=== PATIENT | male | born 1935 | race Caucasian/White ===

== ENCOUNTER 2017-04-17 19:35 | Inpatient (IN) ==
--- NOTE | 2017-04-17 19:45 | Emergency Department Report ---
Chest Pain HPI - General Stated Complaint: Fever/Chest Pain Time Seen by Provider: 04/17/17 19:39 Source: patient Mode of arrival: ambulatory Limitations: no limitations - History of Present Illness HPI narrative: He presents to [facility] with c/o chest pain and fever. He started with a fever yesterday, had not taken his temp at home however. Just felt very hot. Has been feeling weak for the last 4 days. Had noticed an increased cough 4 days ago as well, cough is non productive. He does have a history of COPD but does not wear O2 normally. Noted sats on RA upon arrival are 80% and he is tachypneic. Is speaking in complete sentences at this time but is mildly diaphoretic. MD complaint: chest pain Occurred At: home Onset (ago): hour(s) Duration: constant Onset: during exertion Pain location: substernal Severity: moderate Quality: tightness Pain radiation: none Relieving factors: nothing Exacerbating factors: exertion Associated symptoms: dyspnea, fever, cough Aspirin Today: unknown Nitro Today: no nitro taken today Treatments prior to arrival chest pain: none - Related Data Home Medications Medication Instructions Recorded Confirmed Albuterol Sulfate [Proair Hfa] 1 puff INH Q4H PRN 04/17/17 04/17/17 Aspirin 325 mg PO DAILY 04/17/17 04/17/17 Ipratropium/Albuterol [Combivent 1 puff INH BID 04/17/17 04/17/17 Respimat Inhaler] Metoprolol Tartrate [Lopressor] 25 mg PO BID 04/17/17 04/17/17 Rosuvastatin [Crestor] 20 mg PO HS 04/17/17 04/17/17 Allergies Allergy/AdvReac Type Severity Reaction Status Date / Time No Known Allergies Allergy Verified 04/17/17 20:23 Review of Systems Constitutional: Reports: fever, chills, weakness ENT: Denies: ear pain, throat pain, congestion Cardiovascular: Reports: chest pain, dyspnea on exertion. Denies: palpitations , edema Respiratory: Reports: cough, dyspnea. Denies: wheezes, hemoptysis Gastrointestinal: Denies: abdominal pain, nausea, vomiting, diarrhea Integumentary: Denies: rash Neurological: Reports: weakness. Denies: headache, numbness, paresthesias [facility] Patient Stated Medical History Coronary Artery Disease Yes Chronic Obstructive Pulmonary Yes Disease (COPD) High Cholesterol Coronary artery disease with 3 stents Surgical History: Coronary artery stenting - Social History Smoking status: Never smoker Substance use type: does not use Alcohol intake frequency: does not drink Physical Exam - Limitations Limitations: no limitations - General General appearance: alert, in no apparent distress - Normal Exams: Neck:: Full range of motion, without adenopathy, JVD, bruits or thyromegaly Cardiovascular:: Regular rate and rhythm, without murmur or gallop, Pulses 2+ all extremities, capillary refill, <2 seconds all extremities Abdomen:: Bowel sounds positive, soft, non-tender, non-distended, no hepatosplenomegaly, masses or bruits noted Neurological:: Patient is alert, and oriented Psychiatric:: Patient exhibits, appropriate attention, emotion and affect - Respiratory Respiratory exam: Present: normal lung sounds bilaterally, other (tachypneic) Course Vital Signs Temperature 99.9 F 04/17/17 19:38 Respiratory Rate 25 H 04/17/17 19:38 Blood Pressure 154/65 H 04/17/17 19:38 Pulse Oximetry 83 L 04/17/17 19:38 Temperature 99.9 F 04/17/17 19:38 Respiratory Rate 20 04/17/17 20:10 Blood Pressure 154/65 H 04/17/17 19:38 Pulse Oximetry 91 04/17/17 20:10 Chest Pain - MDM Narrative Medical decision making narrative: Chesty xray does show a RLL pneumonia. Lactate is normal at 1.4. IV Rocephin and Zithromax ordered. He is at 92% on the 2L O2 per NC currently. Did speak with Dr Edwards and he will accept for admission at this time. - Differential Diagnosis Likely: stable angina, unstable angina pectoris, atypical chest pain, st elevation myocardial infarction - Lab Data Attestation: I reviewed the patient's lab results. Result diagrams: 04/17/17 19:47 04/17/17 19:47 Lab Results 04/17/17 04/17/17 04/17/17 Range/Units 19:47 19:47 20:21 WBC 23.5 H (4.5-11.0) T/MM3 RBC 3.99 L (4.50-5.90) M/MM3 Hgb 13.1 L (13.5-17.5) GM/DL Hct 39.5 L (41-53) % MCV 99.0 (80-100) UM3 MCH 32.8 (26-34) UUG MCHC 33.2 (31-37) GM/DL RDW Std Deviation 44.8 (36.9-50.2) FL Plt Count 242 (130-400) T/MM3 MPV 11.6 (9.4-12.4) UM3 Immature Gran % (Auto) Not performed Neut % (Auto) Not performed Lymph % (Auto) Not performed Coleman % (Auto) Not performed Eos % (Auto) Not performed Baso % (Auto) Not performed Neut # Not performed Lymph # Not performed Coleman # Not performed Eos # Not performed Baso # Not performed Abs Immat Gran (auto) Not performed Neutrophils % (Manual) 88.0 H (33-66) % Band Neutrophils % 9.0 H (0-6) % Monocytes % (Manual) 3.0 (0-9.0) % Neutrophils # (Manual) 20.7 H (1.8-7.7) T/MM3 Band Neutrophils # 2.1 T/MM3 Monocytes # (Manual) 0.7 (0-0.8) T/MM3 RBC Morph Comment Normal Turbidity < 20 (0-20) Sodium 140 (134-144) MEQ/L Potassium 4.2 (3.6-5) MEQ/L Chloride 103 (98-107) MEQ/L Carbon Dioxide 23 (22-30) MEQ/L Anion Gap 14 (5-15) MEQ/L BUN 20.0 (9-20) MG/DL Creatinine 1.3 (0.8-1.5) MG/DL GFR Calculation 53 BUN/Creatinine Ratio 15 (6-26) RATIO Glucose 159 H (75-110) MG/DL Calculated Osmolality 275 (261-280) MOSM/KG Calcium 8.8 (8.4-10.2) MG/DL Total Bilirubin 1.30 (0.20-1.30) MG/DL Icterus Index < 2 (0-7) AST 24 (17-59) U/L ALT 31 (21-72) U/L Alkaline Phosphatase 76 (38-126) U/L Troponin I 0.017 (0-0.12) ng/ml Total Protein 7.3 (6.3-8.2) G/DL Albumin 4.3 (3.5-5.0) G/DL Globulin 3.0 (2.4-3.6) G/DL Albumin/Globulin Ratio 1.4 (1.1-2.2) RATIO Plasma Lactate 1.4 (0.6-2.2) MMOL/L Specimen Hemolysis 29 H (0-25) - Radiology Data Attestation: I reviewed the patient's radiology results. Chest xray: Right lower lobe pneumonia Disposition Clinical Impression: Pneumonia Qualifiers: Pneumonia type: due to other aerobic Gram-negative bacteria Laterality: right Lung location: lower lobe of lung Qualified Code(s): J15.6 - Pneumonia due to other aerobic Gram-negative bacteria Condition: Stable Prescriptions: No Action Ipratropium/Albuterol [Combivent Respimat Inhaler] 1 puff INH BID Aspirin 325 mg PO DAILY Metoprolol Tartrate [Lopressor] 25 mg PO BID Rosuvastatin [Crestor] 20 mg PO HS Albuterol Sulfate [Proair Hfa] 1 puff INH Q4H PRN PRN Reason: Shortness Of Air/Wheezing Time of Disposition: 21:10 - Seen By: midlevel
[2017-04-17] MEDS ORDERED: ALBUTEROL/IPRATROPIUM 2.5mg-0.5mg/3ml NEB AEROSOL ONE (20:09)
[2017-04-17] MEDS ORDERED: CEFTRIAXONE (ER USE ONLY) 1 GM in NS 100 ML IV ONE (20:14)
[2017-04-17] MEDS: SALINE FLUSH 10ml SYRINGE IVF PRN (20:37)
[2017-04-17] MEDS ORDERED: NS 1,000 ML IV SCH (20:45)
[2017-04-17] MEDS ORDERED: AZITHROMYCIN IV 500 MG in NS 250ml 250 ML IV ONE (21:08)
--- NOTE | 2017-04-17 21:54 | History & Physical Report ---
<Jeffrey Edwards - Last Filed: 04/17/17 22:54> History of Present Illness Date: 04/17/17 Chief complaint: cough, subjective fever, weakness HPI: The patient is an 82 y/o male with h/o COPD, HLD and CAD who presents to ER at [facility] w/ cc of cough, subjective fever, right-sided chest pain worse w/ deep inspiration and coughing and global/generalized weakness and fatigue. Patient states he started w/ a cough, generalized weakness and feeling tired on Friday, then noted the right-sided lateral chest wall pain intermittently starting on Friday mainly w/ cough and deep breaths, and then felt "hot" on Fri but didn't take his temperature. Patient continued to have symptoms today so came to the ER. He states he did not use his inhalers today b/c he "lost track of them". Patient denies n/v/d, Headaches, nasal symptoms, GI symptoms and denies change in bladder function. Denies neuro issues or deficits. Weakness is generalized w/ malaise. In ED, patient noted to have O2 sat of 82% per report so placed on O2 per NC and sats increased to 92-93%. Patient had CXR which showed RLL pneumonia and he was started on 1g IV Rocephin and 500mg IV Azithromycin along w/ IVFs and was given neb treatment w/ DuoNeb. WBC is 23.5K, 88% neutrophils and 9% bands. Lactate = 1.4 Patient to be admitted to the Hospitalist service for further evaluation and management. Patient at the time I visited with him states that he is feeling better compared to when he first came to the ER tonight. Review of Systems Review of systems: 10 point ROS negative except as noted above in the HPI PFSH Patient Stated Medical History Coronary Artery Disease Yes Chronic Obstructive Pulmonary Yes Disease (COPD) Medical History Updates: Elevated Cholesterol Surgical History: Coronary artery stenting Family History: Patient states his father of lung/pleural cancer, one brother r/t pancreatic cancer, another brother secondary to liver cancer and his mother of cancer however patient cannot recall what type. - Social History Smoking status: Former smoker Housing: house Social history: Patient states he smoked for about 60 years and quit about 5 years ago when he was told he had COPD/Emphysema Medications Home Medications Medication Instructions Recorded Confirmed Type Albuterol Sulfate [Proair Hfa] 1 puff INH Q4H PRN 04/17/17 04/17/17 History Aspirin 325 mg PO DAILY 04/17/17 04/17/17 History Ipratropium/Albuterol [Combivent 1 puff INH BID 04/17/17 04/17/17 History Respimat Inhaler] Metoprolol Tartrate [Lopressor] 25 mg PO BID 04/17/17 04/17/17 History Rosuvastatin [Crestor] 20 mg PO HS 04/17/17 04/17/17 History Allergies Allergy/AdvReac Type Severity Reaction Status Date / Time No Known Allergies Allergy Verified 04/17/17 20:23 Exam Vital Signs: Temperature 99.9 F 04/17/17 19:38 Pulse Rate 91 04/17/17 21:44 Respiratory Rate 20 04/17/17 20:10 Blood Pressure 154/65 H 04/17/17 19:38 Pulse Oximetry 92 04/17/17 21:44 Oxygen Delivery Method Nasal Cannula Oxygen Flow Rate 2 Height: 1.73 m Weight: 62.5 kg - Constitutional Present: no acute distress, well nourished, well developed, cooperative. Absent : diaphoretic, disheveled - Routine HEENT Exam Head: Present: normocephalic, atraumatic Eye: Present: EOMI, PERRL. Absent: scleral injection ENT: Present: mucous membranes dry - Routine Neck Exam Present: supple, full ROM. Absent: JVD, carotid bruit, tracheal deviation - Routine Respiratory Exam Present: CTA bilaterally (except for faint rales in RLL area), prolonged expiratory phase (mild). Absent: accessory muscle use, dyspnea, respiratory distress, stridor, wheezes - Routine Cardiovascular Exam Present: RRR - Routine Abdominal Exam Present: soft, normoactive bowel sounds, non distended. Absent: tenderness - Routine Extremities Exam Absent: cyanosis, clubbing, edema - Routine Skin Exam Present: intact, warm. Absent: erythema - Routine Neurological Exam Present: alert, oriented X3, CN II-XII intact. Absent: motor deficit - Routine Psychiatric Exam Present: normal affect, normal thought process, cooperative, good insight Results - Labs CBC & Chem 7: 04/17/17 19:47 04/17/17 19:47 Microbiology Results: Microbiology 04/17/17 20:21 Peripheral/Iv Start Blood Culture - Preliminary Culture Initiated - Results Pending 04/17/17 20:26 Peripheral/Iv Start Blood Culture - Preliminary Culture Initiated - Results Pending Assessment and Plan DVT Prophylaxis: SCD's Resuscitation Status: Full Code Assessment and Plan: Assessment: 1) Acute Pneumonia RLL POA with right-sided lateral chest wall pain likely pleuritic in nature 2) Acute Hypoxia POA - current O2 requirement to keep sats > 90% 3) COPD - possible exacerbation triggered by #1 4) Hypercholesterolemia 5) CAD s/p stents 6) long h/o tobacco cigarette use Plan: Admit to Hospitalist Service Rocephin 1 gram IV q 24 hours Azithromycin 500mg IV x one today, then 250mg po once daily x 4 days starting tomorrow DuoNeb treatments QID RT assessment/consult Oxygen therapy as indicated - titrate to keep sats > 90% Solu-Medrol 125mg IV x one and assess for further indication if helpful Albuterol 2.5mg per neb q 2 hours prn Acetaminophen prn as directed SCDs Resume home medications as indicated, particularly Crestor, ASA and metoprolol Continuous pulse oximetry Supportive care I discussed the plan of care with the patient and the patient verbalized understanding and agreement. Hospital Course Summary Disclaimer: The visit summary below is not to be considered part of the above Progress Note. <Rosa Godoy - Last Filed: 04/18/17 14:21> History of Present Illness Date: 04/18/17 [facility] Patient Stated Medical History Cataracts Yes: removed Hearing Loss Yes Coronary Artery Disease Yes: heart cath with 3 stents Asthma Yes Chronic Obstructive Pulmonary Yes Disease (COPD) Pneumonia Yes Hx Benign Prostatic Yes Hyperplasia Exam Vital Signs: Temperature 98.5 F 04/18/17 09:55 Pulse Rate 76 04/18/17 09:55 Respiratory Rate 16 04/18/17 11:35 Blood Pressure 125/58 04/18/17 08:00 Pulse Oximetry 95 04/18/17 11:35 Oxygen Delivery Method Nasal Cannula Oxygen Flow Rate 4 Fraction of Inspired Oxygen 44 Height: 1.73 m Weight: 62.4 kg Results - Labs CBC & Chem 7: 04/18/17 04:49 04/18/17 04:49 Assessment and Plan (1) Right middle lobe pneumonia Current visit: Yes Status: Acute (2) Severe sepsis Current visit: Yes Status: Acute (3) Acute respiratory failure with hypoxia Current visit: Yes Status: Acute Assessment and Plan: Dr. Edwards's note reviewed. Mr. Devi interviewed and examined. CC: Cough, fever, right-sided pleuritic pain HPI: Mr. Devi is an 82-year-old male who presented to the emergency room yesterday evening with 4 day history of feeling feverish with associated cough and right-sided chest pain. He describes feeling hot all over although he had not checked his temperature. For the past 2 days he has been largely bedbound due to overwhelming fatigue and weakness that accompanied symptoms. Cough has been associated with pleuritic right-sided chest pain and minimal sputum production. He had occasional diaphoresis associated with feeling feverish. He denied myalgias, arthralgias, headache, or dizziness. Due to persistent symptoms yesterday evening a friend transported patient to the emergency room where he was hypoxic with room air oxygen saturation of 83% on arrival and described as tachypnea and diaphoretic on arrival. Chest x-ray demonstrated right middle lobe infiltrate. Antibiotic therapy was initiated and the patient admitted for management of sepsis due to pneumonia. PH/SH/FH: agree with that recorded above with additional surgical history of bilateral cataract extractions and TURP. The patient's primary care physician is Dr. Roque Rahman and Dr. Jonnathan Malone is his developer evangelist. He is a full code and has a signed DPOA to his son and a niece in [place]. ROS: 10 point review as recorded by Dr. Edwards with patient reporting past history of epistaxis when he was on blood thinners after stent placement. EXAM: General-NAD, alert, fluent speech HEENT-PERRL, EOMI without nystagmus, conjunctiva clear, sclera anicteric, conjugate gaze, facial structures symmetric, oropharynx clear, neck supple and without adenopathy Lungs-respirations nonlabored, good airflow, slightly coarse left base posteriorly and decreased breath sounds right lower field anteriorly; no wheezing or rhonchi appreciated Cardiac-regular rhythm, S1-S2 Abd-soft, nontender, without palpable mass, bowel sounds present Ext-without edema Skin-without rash or wounds Neuro-cranial nerves 3 through 12 intact, motor tone/power normal, sensation intact to light touch 4 extremities, no tremor Psych-calm, cooperative, fully oriented DATA: Chest x-ray reviewed by myself demonstrating right middle lobe infiltrate. EKG also reviewed by myself demonstrating sinus rhythm, old inferior ID, possible old anterior ID versus misplaced lead. No acute EKG abnormalities. Admitting white count 23.5 thousand with 88 segs and 9 stabs, blood sugar 159 on admission, remainder of chemistries unremarkable. Assessment: Right middle lobe pneumonia Severe sepsis Acute hypoxic respiratory failure COPD with acute exacerbation Hyperglycemia, stress/steroid induced Leukocytosis CAD Hyperlipidemia Plan: Community-acquired pneumonia limited to the right middle lobe with hypoxia and severe sepsis. Blood cultures negative overnight. Sputum culture ordered. Continue ceftriaxone/azithromycin. Prednisone initiated at 40 mg daily 5 days. Continue breathing treatments and supplemental oxygen-titrate as respiratory status permits. Blood sugars moderately elevated after Solu-Medrol administered last night-continue to monitor, corrective scale insulin available if needed. Continue home medications for coronary disease and hyperglycemia. Discussed with RT/nursing. Sepsis Assessment - Evaluation Possible source: pulmonary Confirmed Suspected Infection: Yes SIRS Criteria: pulse > or equal to 90 beats/minute, WBC > or equal to 12,000, blood sugar >120 in non-diabetic, RR > or equal to 20 Severe Sepsis: SpO2 <90% or ventilated Hospital Course Summary Disclaimer: The visit summary below is not to be considered part of the above Progress Note.
[2017-04-17] MEDS ORDERED: METHYLPREDNISOLONE SOD SUCC 125mg/2ml INJECTION IVP ONE (22:09)
[2017-04-17] MEDS ORDERED: ALBUTEROL 2.5mg/3ml (0.083%) NEB AEROSOL PRN (22:09)
[2017-04-17] MEDS ORDERED: ACETAMINOPHEN 325 MG TABLET PO PRN (22:09)
[2017-04-17] MEDS ORDERED: CALCIUM CARBONATE Chewable 500mg TABLET PO PRN (22:09)
[2017-04-17] MEDS ORDERED: ONDANSETRON 4 MG/2 ML INJECTION IVP PRN (22:09)
[2017-04-17] MEDS ORDERED: DOCUSATE SODIUM 100 MG CAPSULE PO PRN (22:09)
[2017-04-17 22:12] VITALS: BMI 20.9
[2017-04-18] MEDS: NS 1,000 ML IV SCH ×2 (01:13→13:42)
[2017-04-18] MEDS: ROSUVASTATIN 20 MG TABLET PO SCH ×3 (03:33→21:12)
--- NOTE | 2017-04-18 08:43 | XRay Report ---
Indication: dyspnea Procedure: XR chest 2V: Encounter: Initial Comparison: None Technique: PA and lateral radiographs of the chest were obtained. Findings: Lungs and airways: Normal lung volumes. Heterogeneous right middle lobe airspace disease. Normal pulmonary vasculature. Pleura: No pleural effusion or pneumothorax. Heart and mediastinum: Aortic atherosclerosis. The cardiomediastinal silhouette and great vessels are otherwise within normal limits. Osseous structures and soft tissues: No acute osseous abnormality is seen. Impression: Heterogeneous right middle lobe airspace disease suggestive of developing pneumonia. .
[2017-04-18] MEDS: ALBUTEROL/IPRATROPIUM 2.5mg-0.5mg/3ml NEB AEROSOL SCH ×4 (09:35→20:30)
[2017-04-18] MEDS: CEFTRIAXONE 1 G in NS 100 ML IV SCH (10:07)
[2017-04-18] MEDS: AZITHROMYCIN 250 MG TABLET PO SCH (10:08)
[2017-04-18] MEDS: ASPIRIN 325 MG TABLET PO SCH (10:08)
[2017-04-18] MEDS: PredniSONE 20 MG TABLET PO SCH (15:53)
[2017-04-18] MEDS: SALINE FLUSH 10ml SYRINGE IVF PRN (15:53)
[2017-04-18] MEDS ORDERED: PNEUMOCOCCAL 23 VACCINE 0.5ml INJECTION IM ONE (15:57)
[2017-04-18] MEDS: INSULIN ASPART 100unit/ml INJECTION SQ PRN (20:27)
[2017-04-19] MEDS: ALBUTEROL/IPRATROPIUM 2.5mg-0.5mg/3ml NEB AEROSOL SCH ×4 (06:35→19:20)
[2017-04-19] MEDS: ASPIRIN 325 MG TABLET PO SCH (09:38)
[2017-04-19] MEDS: CEFTRIAXONE 1 G in NS 100 ML IV SCH (09:38)
[2017-04-19] MEDS: PredniSONE 20 MG TABLET PO SCH (09:38)
[2017-04-19] MEDS: SALINE FLUSH 10ml SYRINGE IVF PRN (09:39)
[2017-04-19] MEDS: AZITHROMYCIN 250 MG TABLET PO SCH (09:39)
--- NOTE | 2017-04-19 10:48 | Progress Note ---
<Tamica Cheek - Last Filed: 04/19/17 10:45> Subjective: Nicholas is seen today in follow up. He is up in chair- completing ADLs. Reports feeling well, no concerns. Chart is reviewed for collateral information. Continues to require O2, weaning down. Objective Vital signs: Temperature 97.1 F 04/19/17 08:00 Pulse Rate 82 04/19/17 08:00 Respiratory Rate 28 H 04/19/17 08:00 Blood Pressure 115/58 04/19/17 08:00 Pulse Oximetry 96 04/19/17 08:55 Oxygen Delivery Method Nasal Cannula Oxygen Flow Rate 1 Fraction of Inspired Oxygen 44 Weight: 62.4 kg - Constitutional Present: no acute distress, well nourished, well developed, cooperative - Routine HEENT Exam Head: Present: normocephalic, atraumatic - Routine Respiratory Exam Present: decreased breath sounds, distant breath sounds. Absent: accessory muscle use, dyspnea, respiratory distress - Routine Cardiovascular Exam Present: RRR, S1, S2, no murmur - Routine Abdominal Exam Present: soft, normoactive bowel sounds, non distended, non tender - Routine Extremities Exam Present: no edema, non tender - Routine Back/Spine/Pelvis Exam Back/Spine: Present: full ROM - Routine Musculoskeletal Exam Musculoskeletal: Present: no clubbing or cyanosis, moving extremities well - Routine Skin Exam Present: intact, dry, warm - Routine Neurological Exam Present: alert, oriented X3, moving all extremities - Routine Psychiatric Exam Present: normal affect, normal thought process, cooperative Results - Labs CBC & Chem 7: 04/19/17 04:50 04/19/17 04:50 Microbiology Results: Microbiology 04/17/17 20:21 Peripheral/Iv Start Blood Culture - Preliminary No Growth After 1 Day 04/17/17 20:26 Peripheral/Iv Start Blood Culture - Preliminary No Growth After 1 Day - Impressions CXR Impression: Heterogeneous right middle lobe airspace disease suggestive of developing pneumonia. . Assessment and Plan (1) Right middle lobe pneumonia Current visit: Yes Status: Acute (2) Severe sepsis Current visit: Yes Status: Acute (3) Acute respiratory failure with hypoxia Current visit: Yes Status: Acute (4) COPD with exacerbation Current visit: Yes Status: Acute (5) HTN (hypertension) Current visit: Yes Status: Acute DVT Prophylaxis: SCD's GI Prophylaxis: other (N/A) Resuscitation Status: Full Code Assessment and Plan: 04/19/17- *RML pneumonia with sepsis- Worsening leukocytosis with progressive bandemia. ?Steroid related vs ongoing infection Will change azithro to Clinda due to RML infiltrate to cover risk of aspiration given age. Final cx are pending. Continue to monitor inpatient given age and oxygen need. Slow improvement. Repeat labs, CXR in AM. *COPD with exacerbation- PO Prednisone/nebs. Weaning O2. *HTN- Stable on metoprolol. *Dilutional anemia- IVF completed. Repeat labs in AM. - Time spent with patient 25 - 35 minutes Sepsis Assessment - Evaluation Sepsis screening result: No Definite Risk Hospital Course Summary Disclaimer: The visit summary below is not to be considered part of the above Progress Note. Hospital Course: 04/19/17 10:53 *RML pneumonia with sepsis- Worsening leukocytosis with progressive bandemia. ?Steroid related vs ongoing infection Will change azithro to Clinda due to RML infiltrate to cover risk of aspiration given age. Final cx are pending. Continue to monitor inpatient given age and oxygen need. Slow improvement. Repeat labs, CXR in AM. *COPD with exacerbation- PO Prednisone/nebs. Weaning O2. *HTN- Stable on metoprolol. *Dilutional anemia- IVF completed. Repeat labs in AM. <Rosa Godoy - Last Filed: 04/19/17 17:01> Objective Vital signs: Temperature 97.1 F 04/19/17 08:00 Pulse Rate 82 04/19/17 08:00 Respiratory Rate 18 04/19/17 14:46 Blood Pressure 115/58 04/19/17 08:00 Pulse Oximetry 93 04/19/17 14:46 Oxygen Delivery Method Room Air Oxygen Flow Rate 1 Fraction of Inspired Oxygen 44 Results - Labs CBC & Chem 7: 04/19/17 04:50 04/19/17 04:50 Assessment and Plan (1) Right middle lobe pneumonia Current visit: Yes Status: Acute (2) Severe sepsis Current visit: Yes Status: Acute (3) Acute respiratory failure with hypoxia Current visit: Yes Status: Acute (4) COPD with exacerbation Current visit: Yes Status: Acute (5) HTN (hypertension) Current visit: Yes Status: Acute Assessment and Plan: I have independently evaluated and examined this patient. I reviewed the chart, the patient's history, and the CAMP MAINTENANCE SUPERVISOR/PA's documented findings as above. We discussed and formulated the assessment and plan as above with additions as below: Mr. Devi continues to report feeling well with complete resolution of dyspnea and pleuritic pain. He denies nausea or vomiting, had a bowel movement earlier today, has had no further fever and his appetite is good. He ambulated in the halls earlier today on room air and oxygen saturations remained above 93% consistently. NAD, respirations nonlabored on room air. Good airflow, breath sounds clear other than minor crackles at the bases bilaterally-no findings in the right anterior lung field. Cardiac exam regular, no peripheral edema. Hypoxia has improved, obtain overnight oximetry to exclude nocturnal hypoxia prior to discharge. Unclear if leukocytosis reflects steroids although left shift not expected as a result of steroids. Multiple patient reported with bands today that generally have not had them-may all reflect lab reporting abnormality. Repeat chest x-ray in a.m. in addition to lab work. Blood cultures negative to date. Hospital Course Summary Disclaimer: The visit summary below is not to be considered part of the above Progress Note.
[2017-04-19 11:26] VITALS: RESP 18
[2017-04-19] MEDS: CLINDAMYCIN PB 600 MG/50 ML BAG IV SCH ×2 (11:52→17:52)
[2017-04-19] MEDS: INSULIN ASPART 100unit/ml INJECTION SQ PRN (11:54)
[2017-04-19] MEDS: ROSUVASTATIN 20 MG TABLET PO SCH (21:58)
[2017-04-20] MEDS: CLINDAMYCIN PB 600 MG/50 ML BAG IV SCH ×2 (03:06→10:16)
[2017-04-20] MEDS: ALBUTEROL/IPRATROPIUM 2.5mg-0.5mg/3ml NEB AEROSOL SCH ×2 (07:46→11:14)
[2017-04-20 08:34] VITALS: BP 113/54; PULSE 63; TEMP 96.5
[2017-04-20] MEDS: PredniSONE 20 MG TABLET PO SCH (09:08)
[2017-04-20] MEDS: ASPIRIN 325 MG TABLET PO SCH (09:08)
[2017-04-20] MEDS: SALINE FLUSH 10ml SYRINGE IVF PRN (09:09)
[2017-04-20] MEDS: CEFTRIAXONE 1 G in NS 100 ML IV SCH (09:09)
--- NOTE | 2017-04-20 11:10 | Discharge Instructions ---
Discharge Plan - Med Rec/Dispo Referrals/Follow Up: Roque Rahman MD [Family Provider] - 1 Week Jalen Instructions: Chest Pain (GEN), Fever in Adults (GEN) Prescriptions: New PredniSONE [Deltasone] 40 mg PO WB #6 tablet Amoxicillin/Potassium Clav [Augmentin 875-125 Tablet] 1 each PO BID #4 tablet Continue Ipratropium/Albuterol [Combivent Respimat Inhaler] 1 puff INH BID Aspirin 325 mg PO DAILY Metoprolol Tartrate [Lopressor] 25 mg PO BID Rosuvastatin [Crestor] 20 mg PO HS Albuterol Sulfate [Proair Hfa] 1 puff INH Q4H PRN PRN Reason: Shortness Of Air/Wheezing Discharge Instructions/Outpatient Orders: Final Provider Discharge Instructions Location: Determined By Patient - Disposition 01 Discharged Home, Self-Care
[2017-04-20 11:17] VITALS: O2SAT 96
--- NOTE | 2017-04-20 11:59 | XRay Report ---
Indication: Pneumonia PROCEDURE: XR chest 2V: Encounter: Initial Comparison: 04/17/2017 Findings: The right middle lobe predominantly interstitial infiltrate with some airspace components has improved significant. No new infiltrate. Mild pulmonary hyperaeration. Tiny right subpulmonic pleural effusion. Trachea midline. No cardiomegaly or pulmonary vascular engorgement. IMPRESSION: Significant improvement of the right middle lobe infiltrate. Some residuum exists and continued follow-up is recommended. .
--- NOTE | 2017-04-20 13:32 | Discharge Summary ---
Discharge Information Date of admission: 04/17/17 21:52 Anticipated date of discharge: 04/20/17 Attending Physician: Rosa Godoy MD Primary care physician: Roque Rahman MD - Discharge Diagnosis Discharge Diagnosis: Right middle lobe pneumonia Severe sepsis Acute respiratory failure with hypoxia, improved COPD exacerbation Hypertension Leukocytosis Normocytic anemia Stress/steroid induced hyperglycemia - Procedures Procedures: Overnight oximetry on 04/19-04/20 obtained on room air demonstrated oxygen saturations between 85-88% for almost 3 hours during the night (2 hours and 51 minutes exactly). There was one brief desaturation lower than that but appeared to be artifact. - Laboratory Labs: On admission (04/17/17) white count was 23.5 with 88% neutrophils and 9% bands. Hemoglobin 11.1. Electrolytes were unremarkable and creatinine 1.3. Glucose slightly increased at 159, liver enzymes within normal limits, lactic acid 1.4. Urinalysis unremarkable. 04/20/17 04:50 04/20/17 04:50 - Microbiology Microbiology 04/18/17 14:17 Urine Streptococcus pneumoniae Antigen - negative Blood cultures 2 drawn 04/17/17 are negative at discharge - Radiology Radiology: Chest x-ray on admission demonstrated right middle lobe pneumonia without other acute changes. Repeat chest x-ray on 04/20 demonstrated some improvement in the right middle lobe infiltrate although residual was still present. Follow-up recommended. History of Present Illness HPI: The patient is an 82 y/o male with h/o COPD, HLD and CAD who presents to ER at [facility] [place] [facility] w/ cc of cough, subjective fever, right-sided chest pain worse w/ deep inspiration and coughing and global/generalized weakness and fatigue. Patient states he started w/ a cough, generalized weakness and feeling tired on Friday, then noted the right-sided lateral chest wall pain intermittently starting on Friday mainly w/ cough and deep breaths, and then felt "hot" on Fri but didn't take his temperature. Patient continued to have symptoms today so came to the ER. He states he did not use his inhalers today b/c he "lost track of them". Patient denies n/v/d, Headaches, nasal symptoms, GI symptoms and denies change in bladder function. Denies neuro issues or deficits. Weakness is generalized w/ malaise. In ED, patient noted to have O2 sat of 82% per report so placed on O2 per NC and sats increased to 92-93%. Patient had CXR which showed RLL pneumonia and he was started on 1g IV Rocephin and 500mg IV Azithromycin along w/ IVFs and was given neb treatment w/ DuoNeb. WBC is 23.5K, 88% neutrophils and 9% bands. Lactate = 1.4 Patient to be admitted to the Hospitalist service for further evaluation and management. Patient at the time I visited with him states that he is feeling better compared to when he first came to the [facility]. Hospital Course This is a general summary of the patient's hospital course. For more details refer to the complete medical record. Hospital course: Mr. Devi was hospitalized with community-acquired pneumonia involving the right middle lobe. Criteria for severe sepsis were present and he was hypoxic on admission. Blood cultures were obtained and were negative throughout the hospital course. Cough was minimally productive and sputum culture could not be obtained. Strep urine antigen was negative. Patient was initially treated with ceftriaxone and was clinically improved within 12 hours of initial dose of antibiotics. Clindamycin was briefly added due to concern that the right middle lobe infiltrate may reflect aspiration. He received a single dose of Solu- Medrol before conversion to prednisone 40 mg daily. Breathing treatments were used in conjunction with antibiotics and steroids. 2-4 L of supplemental oxygen were necessary to maintain adequate oxygenation the first 2 days of the hospital course but he successfully titrated off oxygen on 04/19. An overnight oximetry was obtained on the evening of 04/19-04/20 which demonstrated minor desaturation in the mid/upper 80s. Results were reviewed with Mr. Devi but he was reluctant to consider home oxygen. I suspect this will be a short-term problem and resolve in the next couple of days and we have subsequently elected to discharge without supplemental oxygen but strongly recommend that nocturnal oximetry be repeated in 1-2 weeks to confirm that nocturnal hypoxia has resolved and was reflective of pneumonia rather than his underlying COPD. On 04/20 the patient reported that his breathing was significantly improved and that he had only minor cough. He denied fever or chills. On examination there was faint wheezing in the posterior left lung field but right lung was clear and respirations were nonlabored. Patient was felt stable for discharge at this time. He was converted from IV Rocephin to oral Augmentin for 2 more days to complete 5 day course of antibiotics. He'll remain on prednisone for several additional days. She was instructed in use of Acappella valve to help with mobilization of secretions and lung expansion. The patient is asked to follow up with Dr. Rahman in approximately one week for reassessment and to help coordinate repeat nocturnal oximetry. Time spent with patient: discharge greater than 30 minutes Discharge Plan - Med Rec/Dispo Referrals/Follow Up: Roque Rahman MD [Family Provider] - 1 Week Jalen Instructions: Chest Pain (GEN), Fever in Adults (GEN) Prescriptions: New PredniSONE [Deltasone] 40 mg PO WB #6 tablet Amoxicillin/Potassium Clav [Augmentin 875-125 Tablet] 1 each PO BID #4 tablet Continue Ipratropium/Albuterol [Combivent Respimat Inhaler] 1 puff INH BID Aspirin 325 mg PO DAILY Metoprolol Tartrate [Lopressor] 25 mg PO BID Rosuvastatin [Crestor] 20 mg PO HS Albuterol Sulfate [Proair Hfa] 1 puff INH Q4H PRN PRN Reason: Shortness Of Air/Wheezing Discharge Instructions/Outpatient Orders: Final Provider Discharge Instructions Location: Determined By Patient - Disposition 01 Discharged Home, Self-Care
== END 2017-04-20 12:24 | disposition home or self-care (01) | DRG 871 ==
LOC: ED 19:35 → MED 21:52
PROVIDERS: ADMIT Internal Medicine; ATTEND Internal Medicine